=== PATIENT | female | born 1955 | race Caucasian/White ===

== ENCOUNTER → 2021-10-18 15:41 | Outpatient (CLI) | payer MEDICARE, SELFPAY ==
--- NOTE | ~2021-10-18 | MM_ITS ---
EXAMINATION: MM screening [facility] BI w mirza HISTORY: Screening TECHNIQUE: Craniocaudal and mediolateral oblique 3-D tomosynthesis images were obtained and synthetic 2-D images were generated. CAD analysis was submitted and interpreted. COMPARISON: Comparison to multiple prior studies sequentially, with oldest reviewed study dated 03/09. BREAST PARENCHYMAL COMPOSITION: There are scattered areas of fibroglandular density. FINDINGS: There is no evidence of suspicious mass, calcification, or architectural distortion to sugg est malignancy in either breast. There has been no suspicious interval change. IMPRESSION: 1. No mammographic evidence of malignancy. 2. Recommend routine screening mammography in one year. BI-RADS Category 1: Negative Reviewed, dictated and finalized at location A.
== END ==
PROVIDERS: Visit Provider Internal Medicine Rheumatology
DX: Z12.31 Encounter for screening mammogram for malignant neoplasm of breast (principal)
CPT/HCPCS: 77063; 77067

== ENCOUNTER → 2023-04-08 12:44 | Outpatient (CLI) | payer MEDICARE, SELFPAY ==
--- NOTE | ~2023-04-08 | MM_ITS ---
EXAMINATION: MM screening [facility] BI w mirza HISTORY: Screening mammogram, family history of breast cancer in her mother. TECHNIQUE: Craniocaudal and mediolateral oblique 3-D tomosynthesis images were obtained and synthetic 2-D images were generated. CAD analysis was submitted and interpreted. COMPARISON: 10/18/2021, 08/26/2018, 09/20/2013 BREAST PARENCHYMAL COMPOSITION: There are scattered areas of fibroglandular density. FINDINGS: No suspicious mass, calcification, or architectural distortion are identified in either ana ast to suggest malignancy. There has been no suspicious interval change. IMPRESSION: 1. No mammographic evidence of malignancy. 2. Recommend routine screening mammography in one year. BI-RADS Category 1: Negative Reviewed, dictated and finalized at location A.
== END ==
PROVIDERS: PCP Internal Medicine Rheumatology; Visit Provider Internal Medicine Rheumatology
DX: Z12.31 Encounter for screening mammogram for malignant neoplasm of breast (principal)
CPT/HCPCS: 77063; 77067

== ENCOUNTER 2024-12-14 10:20 | Outpatient (CLI) | payer MEDICARE, SELFPAY ==
--- NOTE | ~2024-12-14 | MM_ITS ---
EXAMINATION: MM screening [facility] BI w mirza HISTORY: Screening TECHNIQUE: Craniocaudal and mediolateral oblique 3-D tomosynthesis images were obtained and synthetic 2-D images were generated. CAD analysis was submitted and interpreted. COMPARISON: Comparison to multiple prior studies sequentially, with oldest reviewed study dated 08/26. BREAST PARENCHYMAL COMPOSITION: Not dense: There are scattered areas of fibroglandular density. FINDINGS: There is a new periareolar mass of the left breast at approximately 3:00 position. The righ t breast is stable without evidence for malignancy. IMPRESSION: 1. New left breast periareolar mass. 2. Additional mammographic views and possible breast ultrasound are recommended. BI-RADS Category 0: Incomplete: Needs additional imaging evaluation. Reviewed, dictated and finalized at location A. IMPRESSION: 1. New left breast periareolar mass. 2. Additional mammographic views and possible breast ultrasound are recommended . BI-RADS Category 0: Incomplete: Needs additional imaging evaluation.
--- OUTSIDE RECORDS SUMMARY | 2024-12-14 10:32 | XMS_ITS | Clinical Summary ---
Author Organization [facility] Address [address] [place] [address] Phone Care Team Providers Care Tomography Technologist Name Role Phone Provider, Unknown Primary Care Provider Unavaila ble Allergies Active Allergy Reactions Criticality Noted Date Comments Sulfa Antibiotics Itching 05/27/2021 Medications olmesartan (BENICAR) 20 MG Tablet 02/22/2021 Active metFORMIN (GLUCOPHAGE) 500 MG Tablet 03/18/2021 Active meloxicam (MOBIC) 15 MG Tablet 05/15/2021 Active DULoxetine (CYMBALTA) [address] Ester 02/22/2021 Active minocycline (MINOCIN, DYNACIN) 100 MG Capsule 05/07/2021 Acti ve ketoconazole (NIZORAL) 2 % Shampoo 04/08/2021 Active Active Problems No known active problems Immunizations Immunization Administration Dates Next Due Influenza, High-dose, Quadrivalent 03/12/2021 Social History Tobacco Use Types Packs/Day Years Used Date Smoking Tobacco: Never Smokeless Tobacco: Never Comments Unknown Sex and Gender Information Value Date Recorded Sex Assigned at Not on file 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 Gender Identity Not on file Sexual Orientation Not on file Last Filed Vital Signs Vital Sign Reading Time Taken Comments Blood Pressure 120/58 05/27/2021 3:11 PM ADULT LITERACY TEACHER Pulse 120 05/27/2021 3:11 PM ADULT LITERACY TEACHER Temperature 36.3 C (97.3 F) 05/27/2021 3:11 PM ADULT LITERACY TEACHER Respiratory Rate 18 05/27/2021 3:11 PM ADULT LITERACY TEACHER Oxygen Saturation 98% 05/27/2021 3:11 PM ADULT LITERACY TEACHER Inhaled Oxygen Concentration - - Weight 72.6 kg (160 lb) 05/27/2021 3:11 PM ADULT LITERACY TEACHER Height 165.1 cm (5' 5) 05/27/2021 3:11 PM ADULT LITERACY TEACHER Body Mass Index 26.63 05/27/2021 3:11 PM ADULT LITERACY TEACHER Plan of Treatment Health Maintenance Due Date Last Done Comments Hepatitis C Virus (HCV) Screening 1955 Colonoscopy 2000 Colorectal Cancer Screening 2000 Cologuard 2005 Immunochemical Fecal Occult Blood 2005 Pneumococcal Immunization (5 0+ years) (1 of 1 - PCV) 2005 SARS-COV-2 Immunization ( - season) 2024 03/12/2021, 08/15/2020, 07/18/2020 Influenza Immunization (Seas on Ended) 2025 03/12/2021, 03/07/2020, 03/26/2019 Respiratory Syncytial Virus (RSV) Immunization (Adult) (1 - 1-dose 75+ series) 2030 DTaP/Tdap/Td Immunization Discontinued 05/22/2016 TdaP Immunization Completed 05/22/2016 Zoster Immunization Completed 09/24/2020, 03/08/2020 Hepatitis B Immunization Aged Out No longer eligible based on patient's age to complete this topic Human Papillomavirus (HPV) Immunization Aged Out No longer eligible based on patient's age to complete this topic Meningococcal Immunization (ACWY) Aged Out No longer eligible based on patient's age to complete this topic Rotavirus Immunization Aged Out No lo nger eligible based on patient's age to [place] [address] MEDICARE [facility] Care Teams Tomography Technologist Relationship Specialty Start Date End Date Provider, Unknown UNKNOWN PCP - General 05/27/21
--- OUTSIDE RECORDS SUMMARY | 2024-12-14 10:32 | XMS_ITS | Encounter Summary ---
Author Organization [employer] Address 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
--- OUTSIDE RECORDS SUMMARY | 2024-12-14 10:32 | XMS_ITS | Encounter Summary ---
Author Organization [employer] Address 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
--- OUTSIDE RECORDS SUMMARY | 2024-12-14 10:32 | XMS_ITS | Continuity of Care Document ---
Author Organization [facility] Address [address] [place] [address] Phone Care Team Providers Care Supervisor Denture Department Name Role Phone iJm OD OD, Ananda Unavailable Unavailabl e Procedures Procedure Date Office/outpatient Visit, Est Refraction Tear Osmolarity Microfluidic Analysis Ap Eye Photography Eye Exam Established Pt Close Tear Duct Opening Close Tear Duct Opening Permanent Tear Duct Plug Post-op Follow-up Visit EZ Tears Sales Tax Office/outpatient Visit, Est Close Tear Duct Opening Close Tear Duct Opening Permanent Tear Duct Plug Eye Exam Established Pt Close Tear Duct Opening Close Tear Duct Opening Temporary Tear Duct Plug Post-op Follow-up Visit Corneal Topography Post-op Follow-up Visit Post-op Follow-up Visit Post-op Follow-up Visit [place] [facility] Tears Plus Sales Tax Post-op Follow-up Visit Post-op Follow-up Visit Post-op Follow-up Visit Allegretto-Lasik Comanaged Allegretto-Lasik Comanaged No Charge Refractive Evaluation 012 [place] [facility] Tears Plus Sales Tax No Charge Refractive Evaluation 012 Advance Directives Directive Yes / No Effective Date File Name No Information Encounters Encounter Description Practice Location Reason(s) For Visit Diagnoses Date Provider Providers Copied on Encounter Office/outpat ient Visit, Est [facility], [address], [place], [place], [id number], [place] tel:[phone] [facility] No Information Jim Malave. [address], [place], [id number], [place]. tel:[phone] Referring Provider: Ananda Fernandez OD P, [address] [place], [address] . tel:[phone] [facility], [address], [place], [place], [address], [place] tel:[phone] [facility] No Information Qamar LYSSA Umberto. [address] [facility], [address], [place], [address], [place]. tel:[phone] Referring Provider: Ananda Fernandez OD P, [address] [place], [address] . tel:[phone] [facility], [address], [place], [place], [address], [place] tel:[phone] [facility] No Information Jim Malave. [address], [place], [address], [place]. tel:[phone] Referring Provider: Ananda Fernandez OD P, [address] [place], [address] . tel:[phone] Office/outpat ient Visit, Est [facility], [address], [place], [place], [address], [place] tel:[phone] [facility] No Information Andreay OD Ananda. [address], [place], [address], [place]. tel:[phone] Referring Provider: Ananda Fernandez OD P, [address] [place], [address] . tel:[phone] [facility], [address], [place], [place], [address], [place] tel:[phone] [facility] No Information Andreay OD Ananda. [address], [place], [address], [place]. tel:[phone] Referring Provider: Ananda Fernandez OD P, [address] [place], [address] . tel:[phone] [facility], [address], [place], [place], [address], [place] tel:[phone] [facility] No Information Andreay OD Ananda. [address], [place], [address], [place]. tel:[phone] Referring Provider: Ananda Fernandez OD P, [address] [place], [address] . tel:[phone] [facility], [address], [place], [place], [address], [place] tel:[phone] [facility] No Information Andreay OD Ananda. [address] [facility], [place], [place], [address], [place]. tel:[phone] Referring Provider: Ananda Fernandez OD P, [address] [facility], [place], [address] . tel:[phone] [facility], [address] [place] [address] [address], [place], [place], [address], [place] tel:[phone] [facility] No Information Kenadavid LYSSA Ananda. [address] [facility], [place], [place], [address], [place]. tel:[phone] Referring Provider: Ananda Fernandez OD P, [address] [facility], [place], [address] . tel:[phone] [facility], [address], [place], [place], [address], [place] tel:[phone] [facility] No Information Qamar Shipman. [address] [facility], [address], [facility], [place]. tel:[phone] Referring Provider: Umberto Turner, [address], [facility]. tel:[phone] [facility], [address] [place] [address] [address], [place], [place], [address], [place] tel:[phone] [facility] [place] No Information Qamar Shipman. [address] [facility], [address], [facility], [place]. tel:[phone] Referring Provider: Umberto Turner, [address], [facility]. tel:[phone] [facility], [address], [place], [place], [address], [place] tel:[phone] [facility] No Information Qamar LYSSA Umberto. [address] [facility], [address], [facility], . tel:[phone] Referring Provider: Umberto Turner, [address], [facility]. tel:[phone] [facility], [address] [place] [address] [address], [place], [id number], tel:[phone] [facility] No Information Qamar LYSSA Shipman. [address], [facility], . tel:[phone] Referring Provider: Ananda Fernandez OD P, [address], [place], [address] [place] [address] . tel:[phone] [facility], [address] [place] [address] [address], [place], [address], tel:[phone] [facility] No Information [facility] . [address] [place], [place], [id number], . tel:[phone] Referring Provider: Ananda Fernandez OD P, [address] [place], [address] . tel:[phone] [facility], [address] [place] [address] [address], [place], [address], tel:[phone] [facility] No Information Qamar LYSSA Umberto. [address] [facility], [address], [facility], . tel:[phone] Referring Provider: Umberto Turner, [address], [facility]. tel:[phone] [facility], [address], [place], [place], [address], [place] tel:[phone] [facility] [place] No Information Jim Malave. [address], [place], [address], [place]. tel:[phone] Referring Provider: Ananda Lobo, [address] [place], [address] . tel:[phone] Family History Family Member Type Diagnosis Age At Onset No Information Payers Payer name Insurance type Covered democrat ID Authorvini babita(s) [facility] Commercial CI [id number] Social History Type Description Quantity Date Captured Comments Sex Female Smoking Status No Information Chief Complaint And Reason For Visit No Information Reason For Referral Reason For Referral No Information History Of Present Illness Encounter Date Complaint History Of Prese nt Illness No Information Functional Status Date Functional Assessmen t No Information Instructions Date Instruction Additional Infor mation No Information Assessments Type Assessment Date No Information Patient Care Teams Name Effective Dates (start - stop) Status Members No Information
--- OUTSIDE RECORDS SUMMARY | 2024-12-14 10:32 | XMS_ITS | Clinical Summary ---
Author Organization [employer] Address [address] [facility] Attn: Epic Prelude ADT LISETRASHAWN WARDRIK ROJAS [address] Care Team Providers Care Plater Production Name Role Phone Unavailable Primary Care Provider Unavailabl e Social History Tobacco Use Types Packs/Day Years Used Date Smoking Tobacco: Never Assessed Comments Unknown Sex and Gender Information Value Date Recorded Sex Assigned at Not on file Legal Sex Female 4:23 AM DOCTOR OSTEOPATHIC Gender Identity Not on file Sexual Orientation Not on file Plan of Treatment Health Maintenance Due Date Last Done Comments DTAP/TDAP/TD VACCINES (1 - Tdap) 1974 BREAST CANCER SCREENING 1995 COLORECTAL SCREENING 2000 Colorectal Cancer Screening 2000 FIT-DNA Q 3 years 2000 FIT/FOBT Q 1 year 2000 Flex Sig/CT Colonography Q 5 years 2000 PNEUMOCOCCAL VACCINE 50+ YEARS (1 of 1 - PCV) 03/11/20 05 ZOSTER VACCINE (1 of 2) 2005 OSTEOPOROSIS SCREENING 2020 INFLUENZA VACCINE (#1) 2025 RSV VACCINE (60+ or ) (1 - 1-dose 75+ series) 2030
--- OUTSIDE RECORDS SUMMARY | 2024-12-14 10:32 | XMS_ITS | Patient Health Record ---
Author Organization [employer] Address [address] [facility]. [address] [place] [address] Care Team Providers Care Wood Boatbuilder Name Role Phone Dayana MASSEY, [place] Primary Care Provider Unavailabl e Reason For Referral No Information Plan Of Treatment No Information Insurance Providers Payer Name Payer Address Payer Phone Subscriber Number Group Number Insured Name Patient Relationship to Insured Coverage Start Date Coverage End Date [facility] [employer] E2 [address] [address] [place] [address] [id number] Lexi Renae Spouse - patient is the spouse of the insured
--- OUTSIDE RECORDS SUMMARY | 2024-12-14 10:32 | XMS_ITS | Encounter Summary ---
Author Organization [employer] Address 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
== END 2024-12-14 10:21 | disposition home or self-care (01) ==
LOC: CHSIMG 10:25
PROVIDERS: PCP Internal Medicine Rheumatology; Visit Provider Internal Medicine Rheumatology
DX: Z12.31 Encounter for screening mammogram for malignant neoplasm of breast (principal); R92.8 Other abnormal and inconclusive findings on diagnostic imaging of breast
CPT/HCPCS: 77063; 77067